=== PATIENT | female | born 1955 | race Caucasian/White ===

== ENCOUNTER 2016-12-07 17:28 | Emergency (ER) | payer OTHER ==
[~2016-12-07] VITALS: Ht 170.1 cm; Wt 72.6 kg
[~2016-12-07 17:28] MED LIST: ADVAIR 250/501 EA INH; AUGMENTIN 875 M1 TAB PO; BACTRIM DS 8001 TA1 PO; CIPRO500 MG PO; CIPRODEX 0.3%-7.5 ML OT; CLARITIN10 MG PO; CORTISPORIN SUS10 ML OT; CYCLOBENZAPRINE10 MG PO; DARVOCET N 1001 TAB PO; EC NAPROSYN500 MG PO; FIORICET 325 MG1 TAB PO; FLEXERIL10 MG PO; FLONASE0.05 MG/AC NS; Flovent 44 Mcg44 MCG INH; GLYBURIDE1 CRY PO; HYDROCODONE BIT1 T11 PO; JANUVIA25 MG PO; LISINOPRIL2.5 MG PO; MEDROL DOSEPAK4 MG PO; METFORMIN500 MG PO; MOBIC15 MG PO; NAPROSYN500 MG PO; NORCO 325 MG-51 TAB PO; NORFLEX100 MG PO; PARAFON FORTE500 MG PO; PERCOCET 325 MG1 TA3 PO; PREDNISONE10 MG PO; PREDNISONE20 MG PO; PREVACID30 M1 PO; PRILOSEC40 MG PO; PROAIR HFA0.09 MG/AC IH; PYRIDIUM100 MG PO; PYRIDIUM200 MG PO; REMERON30 MG PO; SYNTHROID0.15 MG PO; TRAMADOL HCL50 MG PO; TRAZODONE50 MG PO; TRIMOX500 MG PO; VICODIN 500 MG-1 TAB PO
[2016-12-07 17:45] VITALS: BP 147/97
[2016-12-07] MEDS ORDERED: CORTISPORIN SOL10 ML OT (17:47)
[2016-12-07 18:18] LABS: BASO % 0.4 % (0.0-1.0); EOS # 0.1 10*3/uL (0.0-0.4); EOS % 0.9 % (1.0-4.0); HEMATOCRIT 38.9 % (37.0-47.0); HEMOGLOBIN 12.7 g/dl (12.0-16.0); LYMPH # 2.3 10*3/uL (1.3-4.4); LYMPH % 43.8 % (27.0-41.0); MEAN CELL VOLUME 92.4 fl (81.0-99.0); MEAN CORPUSCULAR HGB 30.2 pg (27.0-31.0); MEAN CORPUSCULAR HGB CONC 32.6 g/dl (33.0-37.0); MEAN PLATELET VOLUME 9.4 fl (9.6-12.3); MONO # 0.3 10*3/uL (0.1-1.0); MONO % 6.4 % (3.0-9.0); NEUT # 2.6 10*3/uL (2.3-7.9); NEUT % 48.1 % (47.0-73.0); PLATELET COUNT AUTOMATED 263 10*3/uL (130-400); RED BLOOD COUNT 4.21 10*6/uL (4.10-5.10); RED CELL DISTRI WIDTH 13.2 % (0-14.5); WHITE BLOOD COUNT 5.3 10*3/uL (4.8-10.8)
[2016-12-07 18:37] LABS: MAGNESIUM 2.1 mg/dL (1.5-2.1)
[2016-12-07 18:40] LABS: C-REACTIVE PROTEIN < 0.29 MG/DL (0-0.3)
[2016-12-07 18:41] LABS: ALBUMIN 3.9 gm/dl (3.1-4.5); BILIRUBIN, TOTAL 0.3 mg/dl (0.2-1.0); POTASSIUM 3.7 mmol/L (3.5-5.1); TOTAL PROTEIN 7.7 gm/dL (6.4-8.2)
[2016-12-07] MEDS ORDERED: PREDNISONE20 M1 PO (19:20)
== END 2016-12-07 19:25 | disposition home or self-care (01) ==
LOC: ED 17:28
PROVIDERS: Emergency Medicine
DX: M19.90 Unspecified osteoarthritis, unspecified site (principal); F17.200 Nicotine dependence, unspecified, uncomplicated; Z90.89 Acquired absence of other organs; Z98.890 Other specified postprocedural states; Z90.710 Acquired absence of both cervix and uterus

== ENCOUNTER 2017-09-20 15:17 | Emergency (ER) | payer OTHER ==
[~2017-09-20] VITALS: Ht 170.1 cm; Wt 70.3 kg
[~2017-09-20 15:17] MED LIST changes: +CORTISPORIN SOL10 ML OT; +PREDNISONE20 M1 PO
[2017-09-20 15:24] VITALS: BP 115/65
[2017-09-20] MEDS ORDERED: SEPTDS PO (15:41)
[2017-09-20] MEDS ORDERED: NAPROSYN500 MG PO (15:41)
== END 2017-09-20 15:45 | disposition home or self-care (01) ==
LOC: ED 15:17
DX: N75.0 Cyst of Bartholin's gland (principal); F17.200 Nicotine dependence, unspecified, uncomplicated; Z98.890 Other specified postprocedural states; Z90.710 Acquired absence of both cervix and uterus; Z79.899 Other long term (current) drug therapy

== ENCOUNTER 2017-12-20 13:18 | Emergency (ER) | payer OTHER ==
[~2017-12-20] VITALS: Ht 170.1 cm; Wt 73.5 kg
[~2017-12-20 13:18] MED LIST changes: +SEPTDS PO
[2017-12-20 13:58] VITALS: BP 144/86
[2017-12-20] MEDS ORDERED: CYCLOBENZAPRINE10 MG PO (16:33)
[2017-12-20] MEDS ORDERED: MEDROL DOSEPAK4 MG PO (16:33)
== END 2017-12-20 16:42 | disposition home or self-care (01) ==
LOC: ED 13:18
DX: G89.29 Other chronic pain (principal); M54.42 Lumbago with sciatica, left side; M19.90 Unspecified osteoarthritis, unspecified site; F17.200 Nicotine dependence, unspecified, uncomplicated

== ENCOUNTER → 2018-02-14 | Outpatient (CLI) | payer OTHER ==
[2018-02-14 08:53] LABS: HEMATOCRIT 32.5 % (37.0-47.0); HEMOGLOBIN 10.4 g/dl (12.0-16.0); MEAN CELL VOLUME 92.3 fl (81.0-99.0); MEAN CORPUSCULAR HGB 29.5 pg (27.0-31.0); MEAN PLATELET VOLUME 9.2 fl (9.6-12.3); RED BLOOD COUNT 3.52 10*6/uL (4.10-5.10); RED CELL DISTRI WIDTH 13.3 % (0-14.5); WHITE BLOOD COUNT 5.2 10*3/uL (4.8-10.8)
[2018-02-14 09:22] LABS: ALBUMIN 3.5 gm/dl (3.1-4.5); BUN 22 mg/dl (7-24); CHLORIDE 108 mmol/L (98-107); CHOLESTEROL 217 mg/dL (<200); CREATININE 0.92 mg/dL (0.55-1.02); HDL CHOLESTEROL 68 mg/dl (40-60); LDL CHOLESTEROL 120 mg/dL (9-159); POTASSIUM 4.1 mmol/L (3.5-5.1); SGOT/AST 18 IU/L (3-35); SGPT/ALT 17 U/L (12-78); SODIUM 141 mmol/L (136-145); TOTAL PROTEIN 7.3 gm/dL (6.4-8.2); TRIGLYCERIDES 145 mg/dl (<150); VLDL CHOLESTEROL 29 mg/dL (6-40)
[2018-02-14 09:27] LABS: ALKALINE PHOSPHATASE 46 U/L (45-117); FREE T4 0.52 ng/dl (0.76-1.46)
[2018-02-15 07:04] LABS: FREE T3 010389 2.3 pg/mL (2.0-4.4); THYROID PEROXIDASE (TPO) AB >600 IU/mL (0-34)
[2018-02-15 13:07] LABS: THYROGLOBULIN ANTIBODY >2250.0 IU/mL (0.0-0.9)
== END | disposition home or self-care (01) ==
LOC: LAB 08:32
PROVIDERS: Family Medicine
DX: E78.00 Pure hypercholesterolemia, unspecified (principal); M54.5 Low back pain; E03.9 Hypothyroidism, unspecified; E55.9 Vitamin D deficiency, unspecified; E04.9 Nontoxic goiter, unspecified; C50.919 Malignant neoplasm of unspecified site of unspecified female breast

== ENCOUNTER 2018-04-28 09:31 | Emergency (ER) | payer OTHER ==
[~2018-04-28] VITALS: Ht 167.6 cm; Wt 70.3 kg
[2018-04-28 09:33] VITALS: BP 122/83
[2018-04-28] MEDS ORDERED: LEVOTHYROXINE50 MCG PO (09:38)
[2018-04-28] MEDS ORDERED: MEDROL DOSEPAK4 MG PO (10:45)
[2018-04-28] MEDS ORDERED: PROAIR HFA8.5 GM INH (10:45)
[2018-04-28] MEDS ORDERED: ZITHROMAX250 MG PO (10:45)
== END 2018-04-28 11:02 | disposition home or self-care (01) ==
LOC: ED 09:31
DX: J06.9 Acute upper respiratory infection, unspecified (principal); H92.02 Otalgia, left ear; J44.9 Chronic obstructive pulmonary disease, unspecified; M19.90 Unspecified osteoarthritis, unspecified site; Z79.899 Other long term (current) drug therapy

== ENCOUNTER → 2018-05-05 | Outpatient (CLI) | payer OTHER ==
[~2018-05-05] MED LIST changes: +LEVOTHYROXINE50 MCG PO; +PROAIR HFA8.5 GM INH; +ZITHROMAX250 MG PO
[2018-05-05 15:12] LABS: HEMATOCRIT 37.8 % (37.0-47.0); HEMOGLOBIN 12.1 g/dl (12.0-16.0); MEAN CELL VOLUME 85.5 fl (81.0-99.0); MEAN CORPUSCULAR HGB 27.4 pg (27.0-31.0); MEAN PLATELET VOLUME 9.9 fl (9.6-12.3); RED BLOOD COUNT 4.42 10*6/uL (4.10-5.10); RED CELL DISTRI WIDTH 17.2 % (0-14.5); WHITE BLOOD COUNT 5.4 10*3/uL (4.8-10.8)
[2018-05-05 15:42] LABS: FREE T4 0.5 ng/dl (0.76-1.46)
[2018-05-05 15:53] LABS: THYROID STIM HORMONE (HS) 36.6 uIU/ml (0.358-4.75)
== END | disposition home or self-care (01) ==
LOC: LAB 14:21
PROVIDERS: Family Medicine
DX: E03.9 Hypothyroidism, unspecified (principal); D64.9 Anemia, unspecified; E55.9 Vitamin D deficiency, unspecified

== ENCOUNTER → 2018-07-06 | Outpatient (CLI) | payer OTHER ==
[2018-07-06 17:48] LABS: BASO % 0.3 % (0.0-1.0); EOS # 0.2 10*3/uL (0.0-0.4); EOS % 3.3 % (1.0-4.0); HEMATOCRIT 35.4 % (37.0-47.0); HEMOGLOBIN 11.2 g/dl (12.0-16.0); LYMPH # 2.2 10*3/uL (1.3-4.4); LYMPH % 36.1 % (27.0-41.0); MEAN CELL VOLUME 88.9 fl (81.0-99.0); MEAN CORPUSCULAR HGB 28.1 pg (27.0-31.0); MEAN CORPUSCULAR HGB CONC 31.6 g/dl (33.0-37.0); MEAN PLATELET VOLUME 9.7 fl (9.6-12.3); MONO # 0.3 10*3/uL (0.1-1.0); MONO % 5.2 % (3.0-9.0); NEUT # 3.4 10*3/uL (2.3-7.9); NEUT % 54.8 % (47.0-73.0); PLATELET COUNT AUTOMATED 287 10*3/uL (130-400); RED BLOOD COUNT 3.98 10*6/uL (4.10-5.10); WHITE BLOOD COUNT 6.1 10*3/uL (4.8-10.8)
== END | disposition home or self-care (01) ==
LOC: LAB 16:42
PROVIDERS: Orthopaedic Surgery Sports Medicine
DX: Z01.818 Encounter for other preprocedural examination (principal); J43.9 Emphysema, unspecified; S82.892A Other fracture of left lower leg, initial encounter for closed fracture; Z87.891 Personal history of nicotine dependence; X58.XXXA Exposure to other specified factors, initial encounter; Y93.89 Activity, other specified; Y92.89 Other specified places as the place of occurrence of the external cause; Y99.8 Other external cause status

== ENCOUNTER 2019-01-20 09:36 | Emergency (ER) | payer OTHER ==
[~2019-01-20] VITALS: Ht 167.6 cm; Wt 68.0 kg
[2019-01-20 09:37] VITALS: BP 125/86
[2019-04-26] MEDS ORDERED: MEDROL DOSEPAK4 MG PO (15:40)
[2019-04-26] MEDS ORDERED: ROBAXIN500 M1 PO (15:40)
== END 2019-01-20 11:02 | disposition home or self-care (01) ==
LOC: ED 09:36
DX: S93.402A Sprain of unspecified ligament of left ankle, initial encounter (principal); R03.0 Elevated blood-pressure reading, without diagnosis of hypertension; G89.29 Other chronic pain; Z90.710 Acquired absence of both cervix and uterus; X50.1XXA Overexertion from prolonged static or awkward postures, initial encounter; Y93.89 Activity, other specified; Y92.89 Other specified places as the place of occurrence of the external cause; Y99.8 Other external cause status

== ENCOUNTER 2019-08-31 15:26 | Emergency (ER) | payer OTHER ==
[~2019-08-31] VITALS: Ht 170.1 cm; Wt 63.5 kg
[~2019-08-31 15:26] MED LIST changes: +ROBAXIN500 M1 PO
[2019-08-31 15:30] VITALS: BP 102/70
[2019-08-31 15:52] LABS: BASO % 0.3 % (0.0-1.0); EOS # 0.4 10*3/uL (0.0-0.4); EOS % 6.5 % (1.0-4.0); HEMATOCRIT 35.7 % (37.0-47.0); HEMOGLOBIN 11.7 g/dl (12.0-16.0); LYMPH # 1.7 10*3/uL (1.3-4.4); LYMPH % 29.3 % (27.0-41.0); MEAN CELL VOLUME 94.4 fl (81.0-99.0); MEAN CORPUSCULAR HGB CONC 32.8 g/dl (33.0-37.0); MEAN PLATELET VOLUME 9.8 fl (9.6-12.3); MONO # 0.4 10*3/uL (0.1-1.0); MONO % 7.3 % (3.0-9.0); NEUT # 3.2 10*3/uL (2.3-7.9); NEUT % 56.4 % (47.0-73.0); PLATELET COUNT AUTOMATED 238 10*3/uL (130-400); RED BLOOD COUNT 3.78 10*6/uL (4.10-5.10); RED CELL DISTRI WIDTH 13.8 % (0-14.5); WHITE BLOOD COUNT 5.7 10*3/uL (4.8-10.8)
[2019-08-31 16:04] LABS: ACT PARTIAL THROMBO TIME 25.4 SECONDS (20.0-32.1); INTERNATIONAL NORM RATIO 0.9 (2.0-3.5)
[2019-08-31 16:09] LABS: ALBUMIN 3.5 gm/dl (3.1-4.5); ALKALINE PHOSPHATASE 62 U/L (45-117); BUN 20 mg/dl (7-24); CHLORIDE 109 mmol/L (98-107); CREATININE 0.85 mg/dL (0.55-1.02); SGOT/AST 20 IU/L (3-35); SGPT/ALT 23 U/L (12-78); SODIUM 139 mmol/L (136-145)
[2019-08-31 16:14] LABS: TROPONIN I < 0.015 ng/ml (<0.045)
[2019-08-31] MEDS ORDERED: MUCINEX1200 M1 PO (17:33)
[2019-08-31] MEDS ORDERED: DOXYCYCLINE100 M3 PO (17:33)
[2019-08-31] MEDS ORDERED: PREDNISONE20 M1 PO (17:33)
[2019-08-31] MEDS ORDERED: PROVENTIL HFA6.7 GM INH (17:33)
== END 2019-08-31 17:40 | disposition home or self-care (01) ==
LOC: ED 15:26
PROVIDERS: Emergency Medicine
DX: J44.1 Chronic obstructive pulmonary disease with (acute) exacerbation (principal); E03.9 Hypothyroidism, unspecified; Z99.81 Dependence on supplemental oxygen

== ENCOUNTER 2020-09-02 23:39 | Inpatient (IN) | payer OTHER ==
[~2020-09-02] VITALS: Ht 170.1 cm; Wt 61.2 kg
[~2020-09-02 23:39] MED LIST changes: +DOXYCYCLINE100 M3 PO; +MUCINEX1200 M1 PO; +PROVENTIL HFA6.7 GM INH
[2020-09-03] VITALS (22 sets, daily range): BP systolic 95–149; BP diastolic 7–78
[2020-09-03 01:50] LABS: MEAN CELL VOLUME 66.8 fl (81.0-99.0); MEAN CORPUSCULAR HGB 17.5 pg (27.0-31.0); MEAN CORPUSCULAR HGB CONC 26.2 g/dl (33.0-37.0); MEAN PLATELET VOLUME 9.3 fl (9.6-12.3); PLATELET COUNT AUTOMATED 338 10*3/uL (130-400); RED BLOOD COUNT 2.74 10*6/uL (4.10-5.10); RED CELL DISTRI WIDTH 18.5 % (0-14.5)
[2020-09-03 01:58] LABS: HEMATOCRIT 18.3 % (37.0-47.0)
[2020-09-03 02:07] LABS: ALBUMIN 3.5 gm/dl (3.1-4.5); ALKALINE PHOSPHATASE 49 U/L (45-117); BUN 18 mg/dl (7-24); CHLORIDE 112 mmol/L (98-107); CREATININE 1.06 mg/dL (0.55-1.02); SGOT/AST 13 IU/L (3-35); SGPT/ALT 18 U/L (12-78); SODIUM 141 mmol/L (136-145); TOTAL PROTEIN 7.4 gm/dL (6.4-8.2)
[2020-09-03 02:16] LABS: PLATELET SUFFICIENCY NORMAL (NORMAL); TOTAL CELLS COUNTED 100 #CELLS
[2020-09-03 02:17] LABS: MICROCYTOSIS MODERATE
[2020-09-03 02:46] LABS: ACT PARTIAL THROMBO TIME 22.8 SECONDS (20.0-32.1)
[2020-09-03 03:06] LABS: BILIRUBIN Negative (Negative); BLOOD Negative (Negative); CLARITY Clear (Clear); COLOR Yellow (Yellow); GLUCOSE Negative (Negative); KETONE Negative (Negative); LEUKO ESTERASE Negative (Negative); NITRITE Negative (Negative); PH 6.5 (4.5-8.0); SPECIFIC GRAVITY <= 1.005 (1.001-1.030); UROBILINOGEN 0.2 E.U./dl (0.0-1.0)
[2020-09-03 03:36] LABS: RBC 0-2 rbc/hpf (0-2); WBC 0-2 wbc/hpf (0-5)
--- NOTE | 2020-09-03 03:40 | NUR ---
BLOOD STARTED AT THIS TIME
--- NOTE | 2020-09-03 04:32 | NUR ---
PATIENT IN BED TOLERATING BLOOD TRANSFUSION WELL AT THIS TIME. NO ACUTE DISTRESS. VSS. RN WILL CONT TO MONITOR. CALL LIGHT WITHIN REACH
--- NOTE | 2020-09-03 04:40 | NUR ---
A 65, admitted to , under the services of GEOVANNY Camara DO with a diagnosis of SYMPTOMATIC ANEMIA/DIZZINESS. Chief complaint is RIGHT EAR PAIN/DIZZINESS. Patient arrived via stretcher from [place]. Monitor applied. Initial assessment completed. Vital signs taken and recorded. GEOVANNY CAMARA DO notified of admission to the unit. Orders received. See assessment for past medical history, medications and allergies. Patient and/or family oriented to unit. visitation policy reviewed. Clothing/patient valuable form completed. EDUARDO PARR
--- NOTE | 2020-09-03 04:45 | NUR ---
BLOOD STILL BEING TRANSFUSED WHILE TRANSFERRED TO 5E. TRANSFUSION TRANSFERRED OVER TO EDUARDO STORM ON 5E. PATIENT STABLE AT THIS TIME. AOX3.
--- NOTE | 2020-09-03 05:48 | NUR ---
DR. ROMAN CALLED FOR CLARIFICATION OF IV FLUIDS. INSTRUCTED TO HOLD OFF ON IV FLUID ORDER AFTER BLOOD TRANSFUSIONS AND LAB WORK.
--- NOTE | 2020-09-03 06:05 | NUR ---
CONTACTED DR. FELICIANO FOR SUSPECTED BLOOD TRANSFUSION REACTION. INFORMED DR. FELICIANO THAT PATIENT STARTED C/O SUDDEN ONSET HEADACHE AT 0600. INFORMED DR. FELICIANO THAT BLOOD TRANSFUSION STOPPED, IV FLUIDS INITIATED TO KEEP VEIN OPEN. DR. FELICIANO STATED "THAT SOUNDS GOOD, I DONT WANT TO DO ANYTHING AT THIS TIME." WILL CONTINUE TO MONITOR PATIENT.
--- NOTE | 2020-09-03 06:30 | NUR ---
SPOKE WITH MULTIPLE PEOPLE FROM LAB IN REGARDS TO INABILITY TO OUT UNIT # IN TRANSFUSION REACTION SCREEN. UNIT # IS [id number]. INSTRUCTED TO JUST PLACE INTO NURSES NOTE
--- NOTE | 2020-09-03 06:36 | NUR ---
JAMIE FROM BLOOD BANK STATED THAT NO ORDER NEEDED TO BE PLACED FOR URINE SPECIMEN THAT WAS SENT FOR BLOOD PRODUCT ALLERGIC REACTION. STATED ITS INCLUDED WITH THE REACTION PROCESS.
--- NOTE | 2020-09-03 06:40 | NUR ---
PERMISSION GRANTED TO GIVE PATIENT TYLENOL WITH SIP OF WATER FROM DR. FELICIANO.
[2020-09-03 07:11] LABS: URINE BLOOD,POST TRANSFUSION NEGATIVE
--- NOTE | 2020-09-03 08:30 | NUR ---
PHYSICAL THERAPY Screen received pt is admitted from home with dizziness syncope and anemia with chest pain, per MD notes for blood transfusion. Please consult PT if pt has a decline in fucntional status below baseline thank you Tori Maire PT
--- NOTE | 2020-09-03 09:39 | NUR ---
Nursing screen received and chart reviewed. Patient admitted from symptomatic anemia, near syncope, and chest pain. If patient has a decline in ADLs, transfers, or functional mobility, please send OT orders. Thank you. Anne Ponce OTR/L
[2020-09-03 10:07] LABS: MEAN CELL VOLUME 69.8 fl (81.0-99.0); MEAN CORPUSCULAR HGB 19.2 pg (27.0-31.0); MEAN CORPUSCULAR HGB CONC 27.6 g/dl (33.0-37.0); MEAN PLATELET VOLUME 9.6 fl (9.6-12.3); PLATELET COUNT AUTOMATED 339 10*3/uL (130-400); RED BLOOD COUNT 2.91 10*6/uL (4.10-5.10); RED CELL DISTRI WIDTH 19.5 % (0-14.5); WHITE BLOOD COUNT 4.4 10*3/uL (4.8-10.8)
[2020-09-03 10:15] LABS: HEMATOCRIT 20.3 % (37.0-47.0)
--- NOTE | 2020-09-03 10:15 | NUR ---
NOTIFIED OF HGB/HCT LABS
[2020-09-03 10:27] LABS: ATYPICAL LYMPHS 1 % (0-0); BASOPHILS 2 % (0-1); MICROCYTOSIS MODERATE; PLATELET SUFFICIENCY NORMAL (NORMAL); TARGET CELLS MODERATE; TOTAL CELLS COUNTED 100 #CELLS
[2020-09-03 10:28] LABS: OVALOCYTES FEW; POLYCHROMASIA SLIGHT; SCHISTOCYTES FEW
[2020-09-03 11:50] LABS: MEAN CELL VOLUME 69.5 fl (81.0-99.0); MEAN CORPUSCULAR HGB 19.3 pg (27.0-31.0); MEAN CORPUSCULAR HGB CONC 27.8 g/dl (33.0-37.0); MEAN PLATELET VOLUME 9.3 fl (9.6-12.3); PLATELET COUNT AUTOMATED 344 10*3/uL (130-400); RED BLOOD COUNT 2.85 10*6/uL (4.10-5.10); RED CELL DISTRI WIDTH 19.5 % (0-14.5); WHITE BLOOD COUNT 4.5 10*3/uL (4.8-10.8)
[2020-09-03 11:53] LABS: HEMATOCRIT 19.8 % (37.0-47.0)
--- NOTE | 2020-09-03 11:54 | NUR ---
NOTIFIED OF HGB/HCT LEVEL
[2020-09-03 12:09] LABS: POLYCHROMASIA SLIGHT; TOTAL CELLS COUNTED 100 #CELLS
[2020-09-03 12:10] LABS: MICROCYTOSIS MODERATE; OVALOCYTES FEW; PLATELET SUFFICIENCY NORMAL (NORMAL); TARGET CELLS FEW
--- NOTE | 2020-09-03 15:30 | NUR ---
1 UNIT OF PRBC TRASNFUSED PER ORDER WITHOUT DIFFICULTY
[2020-09-03 19:11] LABS: HEMATOCRIT 23.1 % (37.0-47.0); MEAN CORPUSCULAR HGB 20.2 pg (27.0-31.0); MEAN CORPUSCULAR HGB CONC 28.1 g/dl (33.0-37.0); MEAN PLATELET VOLUME 9.2 fl (9.6-12.3); PLATELET COUNT AUTOMATED 334 10*3/uL (130-400); RED BLOOD COUNT 3.21 10*6/uL (4.10-5.10); RED CELL DISTRI WIDTH 20.5 % (0-14.5); WHITE BLOOD COUNT 3.6 10*3/uL (4.8-10.8)
--- NOTE | 2020-09-03 19:21 | NUR ---
NOTIFIED OF H/H RESULTS
[2020-09-03 19:46] LABS: BASOPHILS 1 % (0-1); PLATELET SUFFICIENCY NORMAL (NORMAL); TOTAL CELLS COUNTED 100 #CELLS
[2020-09-03 19:47] LABS: BURR CELLS FEW; OVALOCYTES FEW
--- NOTE | 2020-09-03 20:44 | NUR ---
CALLED AND SPOKE WITH DR. JO IN REGARDS TO DUPLICATE TRANSFUSE ORDER. OK TO CANCEL DUPLICATE.
--- NOTE | 2020-09-03 20:45 | NUR ---
CALLED AND SPOKE WITH DR. FELICIANO IN REGARDS TO DUPLICATE TRANSFUSE ORDER. OK TO CANCEL DUPLICATE.
--- NOTE | 2020-09-03 23:34 | NUR ---
Informed consent obtained from patient for Blood transfussion by Dr. FELICIANO. Patient identified by arm band. Vital signs recorded. Blood unit number verified by 2 R.N.'s. I.V. site satisfactory. Unit 2 started at a KVO rate with Normal Saline. EDUARDO PARR
[2020-09-04] VITALS (13 sets, daily range): BP systolic 101–132; BP diastolic 44–72
--- NOTE | 2020-09-04 01:59 | NUR ---
1U PRBC TRANSFUSED AND PATIENT TOLERATED WELL. CALL LIGHT IS WITHIN REACH. WILL CONTINUE TO MONITOR.
--- NOTE | 2020-09-04 03:19 | NUR ---
PRN TYLENOL GIVEN WITH SIP OF WATER FOR HEADACHE. WITH PERMISSION FROM DR. FELICIANO. WILL MONITOR EFFECT.
--- NOTE | 2020-09-04 04:00 | NUR ---
PRN TYLENOL EFFECTIVE PER PATIENT.
[2020-09-04 06:26] LABS: BASO % 0.6 % (0.0-1.0); EOS # 0.2 10*3/uL (0.0-0.4); EOS % 3.8 % (1.0-4.0); HEMATOCRIT 26.3 % (37.0-47.0); LYMPH # 1.6 10*3/uL (1.3-4.4); LYMPH % 32.8 % (27.0-41.0); MEAN CELL VOLUME 71.3 fl (81.0-99.0); MEAN CORPUSCULAR HGB 20.6 pg (27.0-31.0); MEAN CORPUSCULAR HGB CONC 28.9 g/dl (33.0-37.0); MEAN PLATELET VOLUME 9.8 fl (9.6-12.3); MONO # 0.5 10*3/uL (0.1-1.0); MONO % 9.7 % (3.0-9.0); NEUT # 2.5 10*3/uL (2.3-7.9); NEUT % 52.9 % (47.0-73.0); PLATELET COUNT AUTOMATED 390 10*3/uL (130-400); RED BLOOD COUNT 3.69 10*6/uL (4.10-5.10); RED CELL DISTRI WIDTH 20.7 % (0-14.5); WHITE BLOOD COUNT 4.8 10*3/uL (4.8-10.8)
[2020-09-04 06:50] LABS: CHLORIDE 110 mmol/L (98-107); POTASSIUM 3.6 mmol/L (3.5-5.1); SODIUM 138 mmol/L (136-145)
[2020-09-04 07:00] LABS: ALBUMIN 3.3 gm/dl (3.1-4.5); ALKALINE PHOSPHATASE 46 U/L (45-117); BUN 14 mg/dl (7-24); CHOLESTEROL 199 mg/dL (<200); CREATININE 0.79 mg/dL (0.55-1.02); HDL CHOLESTEROL 52 mg/dl (40-60); LDL CHOLESTEROL 128 mg/dL (9-159); SGOT/AST 12 IU/L (3-35); SGPT/ALT 19 U/L (12-78); TOTAL PROTEIN 7.3 gm/dL (6.4-8.2); TRIGLYCERIDES 94 mg/dl (<150); VLDL CHOLESTEROL 19 mg/dL (6-40)
[2020-09-04 07:18] LABS: VITAMIN D, 25-HYDROXY 24.2 ng/mL (30-100)
--- NOTE | 2020-09-04 09:12 | NUR ---
ASSESSMENT COMPLETE WITHOUT INCIDENCE. PT IS STILL NPO FOR EGD TODAY. NO COMPLAINTS AT THIS TIME. CALL LIGHT WITHIN REACH, WILL CONTINUE TO MONITOR
--- NOTE | 2020-09-04 10:52 | NUR ---
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 Patient states lives at HOME with ALONE. There are NO steps in the home. Physician: IRIS [facility]: [facility] Home health services: NONE Patient's level of ADLs: INDEPENDENT Patient has working utilities: YES DME: NONE Follow-up physician's appointment after d/c: WILL BE MADE BY HOSPITALIST NURSE DIRECTOR ON DISCHARGE Does patient want to access PORTAL?: NO Discharge plan PT LIVES AT HOME ALONE AND IS INDEPENDENT IN HER CARE. TALKED WITH HER ABOUT HH AND SNF BUT SHE DECLINES. STATES SHE WILL RETURN HOME WITH NO NEEDS ON DISCHARGE. WILL CONTINUE TO FOLLOW. STATES SHE WILL HAVE A RIDE OR SHE WILL TAKE A CAB HOME. FELICITAS PERKINS
--- NOTE | 2020-09-04 11:05 | NUR ---
PT OFF THE FLOOR AT THIS TIME FOR EGD
[2020-09-04] MEDS ORDERED: PROTONIX40 MG PO (12:55)
--- NOTE | 2020-09-04 12:59 | NUR ---
RECEIVED REPORT FROM SURGERY, PT IS STABLE AND AND DOING WELL. WILL BE UP TO FLOOR HORTLY
--- NOTE | 2020-09-04 13:07 | NUR ---
PT BACK ON THE FLOOR
--- NOTE | 2020-09-04 15:43 | NUR ---
WENT OVER DISCHARGE PLANS WITH PATIENT. SHE HAS NO QUESTIONS AT THIS TIME. 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 SHE NOTES THAT SHE CAN NOT HAVE A RIDE TO GET HER UNTIL 1900. WILL CONTINUE TO MONITOR
[2020-09-04 15:52] LABS: BASO % 0.6 % (0.0-1.0); EOS # 0.2 10*3/uL (0.0-0.4); EOS % 6.1 % (1.0-4.0); HEMATOCRIT 28.1 % (37.0-47.0); LYMPH # 1.2 10*3/uL (1.3-4.4); LYMPH % 31.9 % (27.0-41.0); MEAN CELL VOLUME 71.9 fl (81.0-99.0); MEAN CORPUSCULAR HGB CONC 29.2 g/dl (33.0-37.0); MEAN PLATELET VOLUME 9.6 fl (9.6-12.3); MONO # 0.3 10*3/uL (0.1-1.0); MONO % 8.9 % (3.0-9.0); NEUT # 1.9 10*3/uL (2.3-7.9); NEUT % 51.1 % (47.0-73.0); PLATELET COUNT AUTOMATED 378 10*3/uL (130-400); RED BLOOD COUNT 3.91 10*6/uL (4.10-5.10); RED CELL DISTRI WIDTH 21.3 % (0-14.5); WHITE BLOOD COUNT 3.6 10*3/uL (4.8-10.8)
--- NOTE | 2020-09-04 19:15 | NUR ---
RN IN TO CHECK ON PATIENT, STATES SHE IS GOING TO HAVE TO CALL A CAB TO GET HOME BUT STATES HE WANS THE FLU AND PNEUMONIA VACCINE BEFORE SHE LEAVES
--- NOTE | 2020-09-04 19:17 | NUR ---
SPOKE WITH DR FELICIANO REGARDING FLU AND PNUMONIA VACCINCES
--- NOTE | 2020-09-04 19:18 | NUR ---
SPOKE WITH PHARMACY TO DETERMINE IF PATIENT MEETS CRITERIA OT RECIEVE THE PNEMONIA VACCINE.
--- NOTE | 2020-09-04 19:41 | NUR ---
PATIENT PROVIDED WITH FLU AND PNEUMONIA VACCINE AT THIS TIME. TOLERATED WELL, CALLING CAB NOW TO BE PICKED UP.
--- NOTE | 2020-09-04 19:51 | NUR ---
CAB CALLED, ETA 10 MINUTES. SHE STATES SHE IS GOING TO WAIT IN THE ER LOBBY, ALL BELONGINGS SENT WITH PATIENT
== END 2020-09-04 20:01 | disposition home or self-care (01) | DRG 241 ==
LOC: ED 23:39 → EDHOLD 09-03 03:28 → 5E 09-03 03:28
PROVIDERS: Emergency Medicine; Internal Medicine; ADMIT Internal Medicine; ATTEND Internal Medicine
PROC: 30233N1 Transfusion of Nonautologous Red Blood Cells into Peripheral Vein, Percutaneous Approach (ICD-10-PCS; 2020-09-03)
PROC: 0DB68ZX Excision of Stomach, Via Natural or Artificial Opening Endoscopic, Diagnostic (ICD-10-PCS; principal; 2020-09-04)
DX: K29.71 Gastritis, unspecified, with bleeding (principal); K29.81 Duodenitis with bleeding; G89.29 Other chronic pain; M54.5 Low back pain; J44.9 Chronic obstructive pulmonary disease, unspecified; F32.9 Major depressive disorder, single episode, unspecified; M19.91 Primary osteoarthritis, unspecified site; N17.0 Acute kidney failure with tubular necrosis; D72.819 Decreased white blood cell count, unspecified; E87.8 Other disorders of electrolyte and fluid balance, not elsewhere classified; R73.9 Hyperglycemia, unspecified; D62 Acute posthemorrhagic anemia; K44.9 Diaphragmatic hernia without obstruction or gangrene; K64.8 Other hemorrhoids; K64.4 Residual hemorrhoidal skin tags; E03.9 Hypothyroidism, unspecified; Z83.3 Family history of diabetes mellitus; Z82.3 Family history of stroke; Z85.3 Personal history of malignant neoplasm of breast; Z90.710 Acquired absence of both cervix and uterus; Z87.891 Personal history of nicotine dependence; Z82.49 Family history of ischemic heart disease and other diseases of the circulatory system; Z85.41 Personal history of malignant neoplasm of cervix uteri; Z80.1 Family history of malignant neoplasm of trachea, bronchus and lung; Z83.6 Family history of other diseases of the respiratory system

== ENCOUNTER → 2020-09-06 | Outpatient (CLI) | payer OTHER ==
[~2020-09-06] MED LIST changes: +PROTONIX40 MG PO
[2020-09-06 10:22] LABS: BASO # 0.1 10*3/uL (0.0-0.1); EOS # 0.3 10*3/uL (0.0-0.4); EOS % 4.8 % (1.0-4.0); HEMATOCRIT 31.1 % (37.0-47.0); LYMPH # 1.5 10*3/uL (1.3-4.4); LYMPH % 24.4 % (27.0-41.0); MEAN CELL VOLUME 74.6 fl (81.0-99.0); MEAN CORPUSCULAR HGB 20.9 pg (27.0-31.0); MEAN PLATELET VOLUME 9.3 fl (9.6-12.3); MONO # 0.6 10*3/uL (0.1-1.0); MONO % 9.4 % (3.0-9.0); NEUT # 3.8 10*3/uL (2.3-7.9); NEUT % 60.1 % (47.0-73.0); PLATELET COUNT AUTOMATED 376 10*3/uL (130-400); RED BLOOD COUNT 4.17 10*6/uL (4.10-5.10); RED CELL DISTRI WIDTH 22.9 % (0-14.5); WHITE BLOOD COUNT 6.3 10*3/uL (4.8-10.8)
== END | disposition home or self-care (01) ==
LOC: LAB 10:05
PROVIDERS: ATTEND Internal Medicine
DX: D50.9 Iron deficiency anemia, unspecified (principal)

== ENCOUNTER 2020-09-24 17:30 | Emergency (ER) | payer OTHER ==
[~2020-09-24] VITALS: Ht 170.1 cm; Wt 59.9 kg
[2020-09-24 17:48] VITALS: BP 120/83
== END 2020-09-24 20:29 | disposition home or self-care (01) ==
LOC: ED 17:30
DX: R11.0 Nausea (principal); J44.9 Chronic obstructive pulmonary disease, unspecified; F41.9 Anxiety disorder, unspecified; F32.9 Major depressive disorder, single episode, unspecified; Z79.899 Other long term (current) drug therapy

== ENCOUNTER 2021-08-05 18:28 | Emergency (ER) | payer OTHER, MEDICAID | END 2021-08-05 19:58 | disposition left against medical advice (07) | LOC: ED 18:28 | DX: H92.03 Otalgia, bilateral (principal); Z53.21 Procedure and treatment not carried out due to patient leaving prior to being seen by health care provider ==

== ENCOUNTER 2023-03-06 11:23 | Emergency (ER) | payer OTHER, MEDICAID ==
[~2023-03-06] VITALS: Ht 170.1 cm; Wt 58.5 kg
[2023-03-06 11:32] VITALS: BP 136/80
[2023-03-06 12:00] LABS: BASO % 0.1 % (0.0-1.0); EOS % 0.1 % (1.0-4.0); HEMATOCRIT 27.5 % (37.0-47.0); LYMPH # 0.7 10*3/uL (1.3-4.4); LYMPH % 7.8 % (27.0-41.0); MEAN CELL VOLUME 72.6 fl (81.0-99.0); MEAN CORPUSCULAR HGB 21.4 pg (27.0-31.0); MEAN CORPUSCULAR HGB CONC 29.5 g/dl (33.0-37.0); MEAN PLATELET VOLUME 8.9 fl (9.6-12.3); MONO # 0.8 10*3/uL (0.1-1.0); MONO % 9.1 % (3.0-9.0); NEUT # 7.4 10*3/uL (2.3-7.9); NEUT % 82.6 % (47.0-73.0); PLATELET COUNT AUTOMATED 315 10*3/uL (130-400); RED BLOOD COUNT 3.79 10*6/uL (4.10-5.10)
[2023-03-06 12:16] LABS: ALKALINE PHOSPHATASE 67 U/L (46-116); BUN 17 mg/dl (9-23); CHLORIDE 102 mmol/L (98-107); POTASSIUM 3.3 mmol/L (3.4-5.1); SGPT/ALT 15 U/L (10-49); TOTAL PROTEIN 7.3 gm/dL (6.0-8.0)
[2023-03-06] MEDS ORDERED: PREDNISONE50 MG PO (13:15)
[2023-03-06] MEDS ORDERED: ZITHROMAX250 MG PO (13:15)
== END 2023-03-06 16:57 | disposition home or self-care (01) ==
LOC: ED 11:23
PROVIDERS: Internal Medicine
DX: J20.9 Acute bronchitis, unspecified (principal); J44.9 Chronic obstructive pulmonary disease, unspecified; F41.9 Anxiety disorder, unspecified; F32.A Depression, unspecified; Z90.710 Acquired absence of both cervix and uterus; Z90.12 Acquired absence of left breast and nipple; Z98.890 Other specified postprocedural states; Z87.891 Personal history of nicotine dependence

== ENCOUNTER 2023-07-13 19:50 | Inpatient (IN) | payer OTHER ==
[~2023-07-13] VITALS: Ht 170.2 cm; Wt 54.9 kg
[~2023-07-13 19:50] MED LIST changes: +PREDNISONE50 MG PO
[2023-07-13 19:59] VITALS: BP 125/74
[2023-07-13 22:07] LABS: BASO % 0.7 % (0.0-1.0); EOS # 0.1 10*3/uL (0.0-0.4); EOS % 2.7 % (1.0-4.0); HEMATOCRIT 29.8 % (37.0-47.0); LYMPH # 1.4 10*3/uL (1.3-4.4); LYMPH % 45.6 % (27.0-41.0); MEAN CELL VOLUME 71.8 fl (81.0-99.0); MEAN CORPUSCULAR HGB CONC 29.2 g/dl (33.0-37.0); MONO # 0.2 10*3/uL (0.1-1.0); NEUT # 1.3 10*3/uL (2.3-7.9); NEUT % 44.7 % (47.0-73.0); PLATELET COUNT AUTOMATED 274 10*3/uL (130-400); RED BLOOD COUNT 4.15 10*6/uL (4.10-5.10); RED CELL DISTRI WIDTH 17.4 % (0-14.5)
[2023-07-13 22:20] LABS: ACT PARTIAL THROMBO TIME 24.8 SECONDS (20.0-32.1); INTERNATIONAL NORM RATIO 1.1 (2.0-3.5)
[2023-07-13 22:27] LABS: ALKALINE PHOSPHATASE 46 U/L (46-116); BUN 23 mg/dl (9-23); CHLORIDE 109 mmol/L (98-107); POTASSIUM 3.6 mmol/L (3.4-5.1); SGPT/ALT 13 U/L (10-49); TOTAL PROTEIN 7.6 gm/dL (6.0-8.0)
[2023-07-13 22:50] VITALS: BP 143/61
[2023-07-14] VITALS (7 sets, daily range): BP systolic 124–136; BP diastolic 64–76
[2023-07-14 07:07] LABS: FREE T4 2.85 ng/dl (0.89-1.76)
== END 2023-07-14 18:40 | disposition left against medical advice (07) | DRG 395 ==
LOC: ED 19:50 → EDHOLD 21:14 → 5E 21:14
PROVIDERS: Family Medicine; ADMIT Internal Medicine; ATTEND Internal Medicine
PROC: 0DJ08ZZ Inspection of Upper Intestinal Tract, Via Natural or Artificial Opening Endoscopic (ICD-10-PCS; principal; 2023-07-14)
DX: T18.128A Food in esophagus causing other injury, initial encounter (principal); K20.90 Esophagitis, unspecified without bleeding; J44.9 Chronic obstructive pulmonary disease, unspecified; E89.0 Postprocedural hypothyroidism; E55.9 Vitamin D deficiency, unspecified; M19.09 Primary osteoarthritis, other specified site; K44.9 Diaphragmatic hernia without obstruction or gangrene; K64.4 Residual hemorrhoidal skin tags; G89.29 Other chronic pain; F10.90 Alcohol use, unspecified, uncomplicated; R73.9 Hyperglycemia, unspecified; E87.8 Other disorders of electrolyte and fluid balance, not elsewhere classified; D72.819 Decreased white blood cell count, unspecified; D50.9 Iron deficiency anemia, unspecified; M54.42 Lumbago with sciatica, left side; F32.A Depression, unspecified; K64.8 Other hemorrhoids; Z53.29 Procedure and treatment not carried out because of patient's decision for other reasons; Z90.710 Acquired absence of both cervix and uterus; Z87.891 Personal history of nicotine dependence; Z82.49 Family history of ischemic heart disease and other diseases of the circulatory system; Z82.5 Family history of asthma and other chronic lower respiratory diseases; Z83.3 Family history of diabetes mellitus; Z80.1 Family history of malignant neoplasm of trachea, bronchus and lung; Z82.3 Family history of stroke; Y92.89 Other specified places as the place of occurrence of the external cause; Z85.3 Personal history of malignant neoplasm of breast; Z85.41 Personal history of malignant neoplasm of cervix uteri

== ENCOUNTER 2023-09-09 02:00 | Emergency (ER) | payer OTHER ==
[~2023-09-09] VITALS: Ht 167.6 cm; Wt 59.4 kg
[2023-09-09 02:14] VITALS: BP 148/49
== END 2023-09-09 04:54 | disposition home or self-care (01) ==
LOC: ED 02:00
DX: R11.2 Nausea with vomiting, unspecified (principal); T40.715A Adverse effect of cannabis, initial encounter; J44.9 Chronic obstructive pulmonary disease, unspecified; F41.9 Anxiety disorder, unspecified; F32.A Depression, unspecified; Z98.890 Other specified postprocedural states; Z90.710 Acquired absence of both cervix and uterus; Z90.12 Acquired absence of left breast and nipple; Z87.891 Personal history of nicotine dependence; Y92.009 Unspecified place in unspecified non-institutional (private) residence as the place of occurrence of the external cause

== ENCOUNTER 2024-01-21 14:00 | Emergency (ER) | payer OTHER ==
[~2024-01-21] VITALS: Ht 170.1 cm; Wt 59.0 kg
[2024-01-21 14:41] VITALS: BP 139/83
[2024-01-21] MEDS ORDERED: IRON236 MG PO (14:41)
[2024-01-21] MEDS ORDERED: IOHEXOL 300 MG/ML 100 ML VIAL IV ONE (15:10)
[2024-01-21 15:37] LABS: BASO % 0.2 % (0.0-1.0); EOS # 0.1 10*3/uL (0.0-0.4); EOS % 0.6 % (1.0-4.0); HEMATOCRIT 34.1 % (37.0-47.0); LYMPH % 8.4 % (27.0-41.0); MEAN CELL VOLUME 84.8 fl (81.0-99.0); MEAN CORPUSCULAR HGB 25.9 pg (27.0-31.0); MEAN CORPUSCULAR HGB CONC 30.5 g/dl (33.0-37.0); MEAN PLATELET VOLUME 9.5 fl (9.6-12.3); MONO # 0.7 10*3/uL (0.1-1.0); MONO % 6.4 % (3.0-9.0); NEUT # 9.6 10*3/uL (2.3-7.9); NEUT % 83.9 % (47.0-73.0); PLATELET COUNT AUTOMATED 211 10*3/uL (130-400); RED BLOOD COUNT 4.02 10*6/uL (4.10-5.10); WHITE BLOOD COUNT 11.5 10*3/uL (4.8-10.8)
[2024-01-21 15:58] LABS: ALKALINE PHOSPHATASE 56 U/L (46-116); BUN 19 mg/dl (9-23); CHLORIDE 106 mmol/L (98-107); LIPASE 29 U/L (12-53); POTASSIUM 3.5 mmol/L (3.4-5.1); SGPT/ALT 29 U/L (5-49); TOTAL PROTEIN 7.5 gm/dL (6.0-8.0)
[2024-01-21] MEDS ORDERED: AMOX-CLAV 875-1 EACH PO (17:54)
[2024-01-21] MEDS ORDERED: Amoxicillin/Clavulanate Pota 875 MG TAB PO ONE (17:55)
== END 2024-01-21 18:06 | disposition home or self-care (01) ==
LOC: ED 14:00
PROVIDERS: Emergency Medicine
DX: J03.90 Acute tonsillitis, unspecified (principal); Z20.822 Contact with and (suspected) exposure to COVID-19; J44.9 Chronic obstructive pulmonary disease, unspecified; F41.9 Anxiety disorder, unspecified; F32.A Depression, unspecified; R10.2 Pelvic and perineal pain; Z98.890 Other specified postprocedural states; Z90.710 Acquired absence of both cervix and uterus; Z90.12 Acquired absence of left breast and nipple; Z87.891 Personal history of nicotine dependence